=== PATIENT | female | born 1995 | race Caucasian/White ===

== ENCOUNTER 2017-02-05 14:01 | Emergency (ER) | payer OTHER ==
[~2017-02-05] VITALS: Ht 167.6 cm; Wt 63.5 kg
[2017-02-05] MEDS ORDERED: NS 1,000 ML IV ONE (15:00)
--- NOTE | 2017-02-05 15:27 | REP ---
Clinical: Altered mental status . Comparison: None. Findings: The ventricles, sulci, and cisterns are normal in position and appearance. Rae-white differentiation is maintained. No acute intracranial hemorrhage, mass/mass effect, pathology or trauma/injury. No evidence for acute infarction. No extra-axial fluid collection. Calvarium is intact. Paranasal sinuses and mastoid air cells are clear. Impression: Normal noncontrast head CT. No evidence for acute intracranial pathology or trauma/injury. Signed by Valentin Mott MD 02/05/2017 03:17 P
--- NOTE | 2017-02-05 15:28 | REP ---
CHEST: Single view. No comparison. There is no evidence of acute infiltrate. No pleural effusion is seen. The heart is normal in size. The mediastinal silhouette is unremarkable. The visualized osseous structures are intact. IMPRESSION: No acute pulmonary disease. Signed by Hussein Rae MD 02/05/2017 03:33 P
[2017-02-05] MEDS ORDERED: ACETAMINOPHEN TAB 650MG DOSE (2X325MG) PO ONE (15:30)
[2017-02-05 15:44] LABS: BASO % 0.3 % (0.0-1.0); EOS # 0.1 K/mm3 (0.0-0.50); EOS % 0.7 % (0.0-3.0); LARGE UNSTAINED CELL # 0.1 K/mm3 (0.0-0.4); LARGE UNSTAINED CELL % 1.2 % (0.0-4.0); LYMPH # 1.8 K/mm3 (1.5-6.5); LYMPH % 20.7 % (24.0-44.0); MEAN CORPUSCULAR HEMOGLOBIN 27.1 pg (27.0-33.0); MEAN CORPUSCULAR HGB CONC 33.6 g/dl (32.0-36.5); MEAN CORPUSCULAR VOLUME 80.7 fl (80.0-96.0); MONO # 0.5 K/mm3 (0.0-0.8); MONO % 5.5 % (0.0-5.0); NEUTROPHILS % 71.7 % (36.0-66.0); PLATELET COUNT, AUTOMATED 250 k/mm3 (150-450); RED CELL DISTRIBUTION WIDTH 12.8 % (11.5-14.5); WHITE BLOOD COUNT 8.3 K/mm3 (4.0-10.0)
[2017-02-05 15:58] LABS: CONTROL LINE HCG INT CTR LINE PRESENT
[2017-02-05 16:10] LABS: ALBUMIN/GLOBULIN RATIO 1.54 (1.00-1.93); ALKALINE PHOSPHATASE 65 U/L (45-117); ALT/SGPT 13 U/L (12-78); ANION GAP 9 MEQ/L (8-16); AST/SGOT 8 U/L (15-37); BILIRUBIN,DIRECT 0.2 MG/DL (0.0-0.2); BILIRUBIN,TOTAL 0.5 MG/DL (0.2-1.0); BLOOD UREA NITROGEN 10 MG/DL (7-18); CALCIUM LEVEL 8.5 MG/DL (8.5-10.1); CARBON DIOXIDE LEVEL 23 MEQ/L (21-32); CHLORIDE LEVEL 110 MEQ/L (98-107); CREATININE FOR GFR 0.61 MG/DL (0.55-1.02); GLOMERULAR FILTRATION RATE > 60.0 (>60); GLUCOSE, FASTING 98 MG/DL (70-105); POTASSIUM SERUM 3.3 MEQ/L (3.5-5.1); SODIUM LEVEL 142 MEQ/L (136-145); TOTAL PROTEIN 6.6 GM/DL (6.4-8.2)
[2017-02-05] MEDS ORDERED: ONDANSETRON 4MG/2ML VIAL (J2405) As Ordered ONE (16:14)
[2017-02-05] MEDS ORDERED: ONDANSETRON 4MG/2ML VIAL (J2405) IV ONE (16:15)
[2017-02-05 16:35] LABS: METHADONE URINE NEGATIVE (NEGATIVE)
[2017-02-05] MEDS ORDERED: diphenhydrAMINE INJ 50MG/ML VIAL (J1200) IV STA (17:52)
[2017-02-05] MEDS ORDERED: METOCLOPRAMIDE INJ 10MG/2ML VIAL (J2765) IV ONE (18:00)
[2017-02-05] MEDS ORDERED: KETOROLAC 30 MG/ML VIAL (J1885) IV ONE (18:00)
[2017-02-05] MEDS ORDERED: REGL10TA6 PO (19:41)
[2017-02-05] MEDS ORDERED: MOTR200T44 PO (19:43)
[2017-02-05 20:03] VITALS: BP 107/64
--- NOTE | 2017-02-06 07:20 | ECGEPIP ---
Stationary ECG Study [facility] - ED Test Date: 2017-02-05 Pat Name: ILIA LAGUNAS Department: Room: - Gender: F Wholesale Buyer: JMi : 1995 Requested By: Mata Bill Order Number: [id number] Reading MD: Adina Subramanian Measurements Intervals [place] Rate: 72 P: -3 NM: 114 QRS: 78 QRSD: 94 T: 25 QT: 370 QTc: 406 Interpretive Statements SINUS RHYTHM WITH SHORT NM INTERVAL NO PRIOR FOR COMPARISON Electronically Signed On 02-06-2017 7:19:35 EDT by Adina Subramanian
== END 2017-02-05 20:04 | disposition home or self-care (01) ==
LOC: M ED 16:04
DX: G43.909 Migraine, unspecified, not intractable, without status migrainosus (principal)
CPT/HCPCS: 70450; 71010; 80048; 80076; 80306; 81001; 82140; 82550; 82553; 83605; 84443; 84703; 85025; 87040; 87086; 93005; 93041; 94760; 96361; 96374; 96375; 99285; G0480; J1200; J1885; J2405; J2765

== ENCOUNTER 2017-02-10 11:30 | Emergency (ER) | payer OTHER ==
[~2017-02-10] VITALS: Ht 167.6 cm; Wt 63.5 kg
[~2017-02-10 11:30] MED LIST: MOTR200T44 PO; REGL10TA6 PO
[2017-02-10] MEDS ORDERED: CETI10TA PO (11:48)
[2017-02-10] MEDS ORDERED: MONT10TA2 PO (11:48)
[2017-02-10] MEDS ORDERED: FIORCAP3 PO (11:48)
[2017-02-10] MEDS ORDERED: METOCLOPRAMIDE INJ 10MG/2ML VIAL (J2765) IV ONE (12:30)
[2017-02-10] MEDS ORDERED: KETOROLAC 30 MG/ML VIAL (J1885) IV ONE (12:30)
[2017-02-10] MEDS ORDERED: NS 1,000 ML IV ONE ×2 (12:30→14:15)
[2017-02-10] MEDS ORDERED: diphenhydrAMINE INJ 50MG/ML VIAL (J1200) IV ONE (12:30)
[2017-02-10 12:51] LABS: BASO % 0.2 % (0.0-1.0); EOS % 0.5 % (0.0-3.0); LARGE UNSTAINED CELL # 0.1 K/mm3 (0.0-0.4); LARGE UNSTAINED CELL % 1.3 % (0.0-4.0); LYMPH # 1.5 K/mm3 (1.5-6.5); LYMPH % 28.3 % (24.0-44.0); MEAN CORPUSCULAR HEMOGLOBIN 26.8 pg (27.0-33.0); MEAN CORPUSCULAR HGB CONC 33.5 g/dl (32.0-36.5); MONO # 0.2 K/mm3 (0.0-0.8); NEUTROPHILS # 3.4 K/mm3 (1.8-7.7); NEUTROPHILS % 65.6 % (36.0-66.0); PLATELET COUNT, AUTOMATED 234 k/mm3 (150-450); RED CELL DISTRIBUTION WIDTH 12.6 % (11.5-14.5); WHITE BLOOD COUNT 5.2 K/mm3 (4.0-10.0)
[2017-02-10 12:55] LABS: INR 1.01
[2017-02-10 13:07] LABS: CONTROL LINE HCG INT CTR LINE PRESENT
[2017-02-10 13:14] LABS: ANION GAP 7 MEQ/L (8-16); BLOOD UREA NITROGEN 13 MG/DL (7-18); CALCIUM LEVEL 9.2 MG/DL (8.5-10.1); CARBON DIOXIDE LEVEL 28 MEQ/L (21-32); CHLORIDE LEVEL 107 MEQ/L (98-107); CREATININE FOR GFR 0.69 MG/DL (0.55-1.02); GLOMERULAR FILTRATION RATE > 60.0 (>60); GLUCOSE, FASTING 91 MG/DL (70-105); MAGNESIUM LEVEL 2.3 MG/DL (1.8-2.4); SODIUM LEVEL 142 MEQ/L (136-145)
[2017-02-10 15:56] VITALS: BP 110/66
--- NOTE | 2017-02-11 09:27 | ECGEPIP ---
Stationary ECG Study [facility] - ED Test Date: 2017-02-10 Pat Name: ILIA LAGUNAS Department: Room: - Gender: F [employer]: jose : 1995 Requested By: GENA MITCHELL Order Number: [id number] Reading MD: Adina Subramanian Measurements Intervals [place] Rate: 74 P: -3 [place]: 122 QRS: 77 QRSD: 92 T: 24 QT: 369 QTc: 411 Interpretive Statements SINUS RHYTH SIMILAR 02/05/17 Electronically Signed On 02-11-2017 9:26:36 EDT by Adina Subramanian
== END 2017-02-10 15:59 | disposition home or self-care (01) ==
LOC: M ED 14:25
DX: R55 Syncope and collapse (principal); G43.909 Migraine, unspecified, not intractable, without status migrainosus; F17.210 Nicotine dependence, cigarettes, uncomplicated; Z79.899 Other long term (current) drug therapy
CPT/HCPCS: 80048; 82550; 82553; 83735; 84443; 84703; 85025; 85610; 93005; 93041; 96361; 96374; 96375; 99284; G0480; J1200; J1885; J2765

== ENCOUNTER 2017-02-15 09:18 | Inpatient (IN) | payer OTHER ==
[~2017-02-15] VITALS: Ht 167.6 cm; Wt 59.1 kg
[~2017-02-15 09:18] MED LIST changes: +CETI10TA PO; +CETIRIZINE (ZyrTEC) 10 MG TAB PO PRN; +CETIRIZINE (ZyrTEC) 10 MG TAB PO SCH; +FIORCAP3 PO; +MONT10TA2 PO; +MONTELUKAST 10 MG TAB PO PRN; +MONTELUKAST 10 MG TAB PO SCH
[2017-02-15 09:55] LABS: BASO % 0.2 % (0.0-1.0); EOS % 0.7 % (0.0-3.0); LARGE UNSTAINED CELL # 0.1 K/mm3 (0.0-0.4); LARGE UNSTAINED CELL % 2.1 % (0.0-4.0); LYMPH # 1.9 K/mm3 (1.5-6.5); LYMPH % 34.9 % (24.0-44.0); MEAN CORPUSCULAR HEMOGLOBIN 26.6 pg (27.0-33.0); MEAN CORPUSCULAR HGB CONC 33.1 g/dl (32.0-36.5); MEAN CORPUSCULAR VOLUME 80.5 fl (80.0-96.0); MONO # 0.3 K/mm3 (0.0-0.8); MONO % 5.8 % (0.0-5.0); NEUTROPHILS # 2.9 K/mm3 (1.8-7.7); NEUTROPHILS % 56.3 % (36.0-66.0); PLATELET COUNT, AUTOMATED 241 k/mm3 (150-450); RED CELL DISTRIBUTION WIDTH 12.7 % (11.5-14.5); WHITE BLOOD COUNT 5.1 K/mm3 (4.0-10.0)
[2017-02-15 10:11] LABS: CONTROL LINE HCG INT CTR LINE PRESENT
--- NOTE | 2017-02-15 10:16 | REP ---
AP PORTABLE CHEST: 02/15/2017. Comparison: 02/05/2017. Clinical history: Syncope/Near-syncope. Findings: The lung johnson are well inflated. There is no pleural effusion, lateral pleural thickening, apical scarring or pneumothorax. The heart, mediastinal and hilar contours are normal. There is no definite infiltrate or mass. The aorta is intact. Airway unremarkable. Bony thorax shows no focal lesion. No free air under the diaphragm. Impression: 1. Negative portable chest. Stable examination from 02/05/2017. Signed by Martín Rick MD 02/15/2017 08:06 P
[2017-02-15 10:21] LABS: ANION GAP 10 MEQ/L (8-16); BLOOD UREA NITROGEN 16 MG/DL (7-18); CALCIUM LEVEL 8.9 MG/DL (8.5-10.1); CARBON DIOXIDE LEVEL 26 MEQ/L (21-32); CHLORIDE LEVEL 105 MEQ/L (98-107); CREATININE FOR GFR 0.76 MG/DL (0.55-1.02); GLOMERULAR FILTRATION RATE > 60.0 (>60); GLUCOSE, FASTING 92 MG/DL (70-105); POTASSIUM SERUM 3.6 MEQ/L (3.5-5.1); SODIUM LEVEL 141 MEQ/L (136-145)
[2017-02-15 10:23] LABS: METHADONE URINE NEGATIVE (NEGATIVE)
--- NOTE | 2017-02-15 10:32 | REP ---
CT Head without contrast HISTORY: Syncope COMPARISON: 02/05/2017 There is no intraparenchymal hemorrhage, acute infarct, mass or midline shift. The ventricular system is normal in appearance. There is no extra cerebral collection. There is no fracture. The visualized sinuses are clear. IMPRESSION: There is no intracranial lesion. Signed by Scott Oliva MD 02/15/2017 10:23 A
[2017-02-15] MEDS ORDERED: BUTA-198 PO (11:25)
[2017-02-15] MEDS ORDERED: ONDANSETRON 4MG/2ML VIAL (J2405) IV PRN (13:15)
[2017-02-15] MEDS ORDERED: ACETAMINOPHEN TAB 650MG DOSE (2X325MG) PO PRN (13:15)
[2017-02-15] MEDS ORDERED: LORazepam 2 MG/ML VIAL (J2060) IV STA (14:13)
[2017-02-15 14:32] LABS: ALBUMIN 4.1 GM/DL (3.2-5.2); ALBUMIN/GLOBULIN RATIO 1.32 (1.00-1.93); ALKALINE PHOSPHATASE 67 U/L (45-117); ALT/SGPT 19 U/L (12-78); AMYLASE 29 U/L (25-115); AST/SGOT 9 U/L (15-37); BILIRUBIN,DIRECT < 0.1 MG/DL (0.0-0.2); BILIRUBIN,TOTAL 0.4 MG/DL (0.2-1.0); TOTAL PROTEIN 7.2 GM/DL (6.4-8.2)
[2017-02-15 15:30] VITALS: BP 134/80
[2017-02-15 16:22] VITALS: BP 134/80
--- NOTE | 2017-02-15 16:24 | REP ---
MR BRAIN WITHOUT AND WITH CONTRAST: HISTORY: Seizure. COMPARISON: CT 02/15/2017. The sinuses are obscured and the orbits and inferior frontal lobes are partially obscured secondary to metal artifact from braces. There are no areas of abnormal signal intensity in the visualized brain. There is no intraparenchymal hemorrhage, infarct, mass or midline shift. There is no abnormal enhancement. There is asymmetry in the temporal horns of the lateral ventricles with the right being larger than the left. This represents a normal variant. There is no hydrocephalus or extracerebral collection. Minimal mucosal thickening is present in the right mastoid air cells. IMPRESSION:Limited examination demonstrating no intracranial lesion. Signed by Scott Oliva MD 02/15/2017 04:36 P
--- NOTE | 2017-02-15 16:40 | ECGEPIP ---
Stationary ECG Study [facility] - ED Test Date: 2017-02-15 Pat Name: ILIA LAGUNAS Department: Room: - Gender: F Compliance Investigator: rn : 1995 Requested By: Álvaro Phillips Order Number: [id number] Reading MD: Adina Subramanian Measurements Intervals [place] Rate: 79 P: 40 IN: 131 QRS: 75 QRSD: 96 T: 20 QT: 356 QTc: 409 Interpretive Statements SINUS RHYTHM WITH SINUS ARRHYTHMIA SIMILAR 02/10/17 Electronically Signed On 02-15-2017 16:40:06 EDT by Adina Subramanian
--- NOTE | 2017-02-15 19:17 | HPEPDOC ---
General Date of Admission Feb 15, 2017 at 13:02 Attending Physician: EMBER LOUIE MD Chief Complaint The patient is a 22-year-old female admitted with a reason for visit of Syncope. Source: Patient, Other (sister in law and friend) Timing/Duration: Week(s) (2) Associated Symptoms: Headaches, Nausea, Syncope, Dizziness History of Present Illness PRIMARY CARE PROVIDER: Dr. Suzie Gilliam [facility] CHIEF COMPLAINT: Loss of consciousness episodes Sent to the ED after fainting in the sleep lab hallway at [facility] HISTORY OF PRESENT ILLNESS: This is a 22-year-old female with past medical history of migraines that began 3-4 years ago, cleft palate at , seasonal allergies, who presented to [facility] ED after fainting and losing consciousness in the hallway of the [facility] sleep lab when a rapid assessment team was called. States, today that she had gotten up, didn't feel well, felt worse than yesterday, and that the staff of the EEG lab/sleep study area had irritated her. They had told her to write down things that she remembered since she started having passing out spells, which had started on February 05. States that she was told to write out details of her passing out and what happens, which she states she does not remember, and made her feel stressed out/upset/irritated. States that on February 05, she was driving [address] and heading towards [place], she began to not feel well as if she was going to pass out, and she put her hazard lights on , pulled over to the side, and called her wvilfh-at-xha. Her iodlos-er-npc who is at bedside now, states that the patient said that she did not feel good, her words were slurred, and the patient was stating to her that she didn't know where she was and was crying, the aoctsh-gx-nmp had tracked her phone information, found out where she was, called 911, and gave her location to 91. Paramedics were sent over for brought her to [facility] ED. Rynelh-hq-eai also states that she was having an anxiety attack. Patient kept asking where her was and thought he was here and he is actually training as a soldier in [place]. In addition, patient states that she is from [place], and when she was driving to [place], had an episode of passing out, she thought that she was actually in her parents home in [place] and that she was taking her dogs out of the house, and feeling as if she was physically there. In actuality, the patient states that her parents do not live in that house anymore and that she does not have any dogs. Prior to February 05, patient states she has never had any loss of consciousness episodes and denies a history of seizures. Her sister- in-law states that when the patient passes out, it isn't very long and usually lasts less than 1 minute, maybe a few seconds, before the patient wakes back up. All in all, ebbjcu-gq-sbm and friend at bedside state that the patient has had at least 6-7 episodes of losing consciousness and fainting which she recovers from after a few seconds. The first episode occurred on February 05. The second episode occurred last . The third episode occurred last Saturday and the patient was not feeling good, falling in and out of sleep, and couldn't keep her eyes open at all. The fourth episode occurred last Saturday. Patient admits that she also fainted in a rocking chair on Saturday this week for a 5th episode. She also admits that she passed out in the tub yesterday while filling water for a 6th episode. Today, the patient passed out seventh time at least while in the sleep lab hallway at [facility]. Her tbgorz-pe-rjz also states that the patient falls when she passes out if she is standing and that there is no consistency with the way that she falls. Sometimes she falls on her side and sometimes she falls forward. Her legs seem to give out. At the sleep lab hallway today, she had fallen on her belly as they were trying to sit her up according to ersxfj-in-gkn. No reported witnesses of the event. It is not known if the patient had hit her head both times that she has fallen. However, patient states that there has been a sore spot on her head that she has noticed. Csvajz-dx-odf mentions that a majority of the time, the patient does not remember where she is at or what is going on. The episodes usually occur after stressful situations, anxiety, or arguing, and then the patient faints. The patient will be standing, sitting, or relaxing taking a bath for instance. Patient also states that she becomes lightheaded and faint, starts having room spinning dizziness. Her head feels very heavy prior to passing out. States she has been drinking 1 L of water per day for last couple of days. Her sister-in- law is also making sure that she eats more and in fact the patient admits that she does eat more. The patient was seen in [facility] ED the first time on Saturday and diagnosed with atypical migraine. The second time the patient was seen on February 10 and diagnosed with orthostatic syncope. During both [facility] ED visits, the patient had negative blood work, seems to have negative orthostatics upon my review, a negative CT scan of the head, and a negative chest x-ray. In addition, patient was treated with Toradol at each visit. She was also treated with Benadryl and Reglan during the ED visit. Also discharged with Reglan and ibuprofen during an [facility] ED visit. Patient states that she did take Reglan for nausea PRN, but this made her dizzy. Patient has also been seen in [place] last in which they only did blood work. Review of systems is positive for cough and chronic sinus problems due to history of cleft palate. Positive for nausea which she states is constant. She was given Reglan the first time that she was in the emergency department. Admits to a bandlike [employer] distribution headache that is mostly throbbing and sometimes pressure-like that began on February 05 as well. States that the headache has been constant and has not gone away at all and is awful. States that the headache is now a 5/10 in intensity. She does admit to an aura with knowing when the headache will come on. States that she begins to have pain in her neck starting at the base of her skull which goes all the way down to her spine up to her low back spine area. States that it hurts to move and stand, and she has to sit down. In addition, the her right eye also hurts at times with no tearing. But it feels good when she closes her right eye. She does admit to sensitivity to bright lights, headlights, and sensitivity to noise only if it is a very bad headache. States Dr. Burdick and Farzaneh Irwin make her headache worse. However, she says that she does not have exacerbation of her headache when she drinks Pepsi. She has no triggers to cheese or chocolate. Admits that sleeping does help her headaches sometimes, as well as a hot bath. But if she is just laying there, she is nauseous. Patient denies fevers, chills , chest pain, shortness of breath, vomiting, diarrhea, constipation. Admits to abdominal pain that began on February 03 on the right side of her abdomen which is not constant. States that she'll go a couple of days without abdominal pain which is intermittent, on and off. The first time that she had the abdominal pain states that it was on the right side of her back too, but now, she states it is just in the right side of her abdomen anteriorly. States that it feels like a muscle spasm. It is a 5/10 out of intensity and gets up to an 8/10 in intensity. It sometimes turns into a dull ache and is a dull ache at this point in time right now. When she moves around, it starts to hurt like a stabbing. ALLERGIES: Seasonal No known drug allergies PAST MEDICAL HISTORY: Born with cleft palate Migraines beginning 3-4 years ago Seasonal allergies No previous history of seizure disorders. PAST SURGICAL HISTORY: Cleft palate repair: Around 20-25 different surgeries starting at 9 months old. 2 recurrent instructions of the nose: 11 years old, 18-year-old Speech surgery 2) grafts: First was at 8 years old, second was at 11 years old, Bone marrow protein biopsy: Round 13 years old Tonsil and adenoidectomy Tubes in ears Right atrium repair 2 Left knee ACL repair 18 years old Right knee MCL repair in 19 years old Pharyngeal flap 18 years old SOCIAL HISTORY: Is an occasional and social smoker: Used to smoke mainly in high school but not as much now. EtOH use: Drinks wine mainly one week and a month, but not a lot. Does not drink beer because she does not like it. No illicit drug use. Lives at home with who is training and in [place] at the moment. No children. 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 No exposure to asbestos/tuberculosis. FAMILY HISTORY: Father: Type 2 diabetes mellitus who is also on insulin, history of massive UT status post stents, may also have high cholesterol Paternal grandparents: from heart attacks in their 50s Maternal grandfather: Pacemaker Mother: Hypertension, anxiety 3 brothers: Healthy and alive No family history of seizure disorders. CODE STATUS: Full code. REVIEW OF SYSTEMS: All review of systems are negative except for those stated in HPI above. PHYSICAL EXAMINATION: Initial ED Vitals: T: 97.7, BP: 120/78, RR: 18, P: 89, O2 Saturation: 97% room air General: Pleasant and cooperative young adult female lying in bed comfortably in no acute distress. Nontoxic and qge-kml-ipeyzdasb. Calm. HEENT: Head: normocephalic, atraumatic. Eyes: PERRL, sclera are nonicteric. Nose: Noticeable asymmetry and deformity of and nose. Throat: no pharyngeal erythema or exudates, moist buccal mucosa, no uvula and no tonsils. Neck: Supple. No cervical lymphadenopathy bilaterally. No thyromegaly. Respiratory: clear to auscultation bilaterally with no wheezes, rales, or rhonchi. Cardiovascular: regular rate and rhythm, with no murmurs, rubs or gallops. Abdomen: soft, nondistended, no hepatosplenomegaly appreciated. Bowel sounds present. Positive generalized tenderness to palpation of abdomen in left upper quadrant, left lower quadrant, right lower quadrant,. Negative Silva's sign. Extremities: 5/5 muscle strength in upper and lower extremities bilaterally, no swelling in either lower extremity bilaterally Neurological: Cranial nerves II through XII intact bilaterally. No focal neurologic deficits appreciated bilaterally. Integumentary: skin free from rashes, lesions, abrasions Vascular: +2 radial pulses bilaterally. LABORATORY DATA: All unremarkable. Please see below. ELECTROCARDIOGRAM: Normal Sinus rhythm Rate: 79 bpm AR interval: 131 ms Cure latter-day: 96 ms QTC interval: [address] segment elevations or depressions appreciated. Normal R-wave progression. RADIOLOGY: Chest x-ray: Negative CT scan of the head without contrast: Negative and showed no acute intracranial pathology. ASSESSMENT: This is a 22-year-old female with past medical history of cleft palate at , 4-5 year history of migraines, and seasonal allergies, presenting to [facility] for a 2 week history of multiple episodes of syncope/presyncope associated with migraine headache that began the same time, and associated with nausea. So far, labs and imaging have been nonrevealing. Differential includes atypical migraine , complex migraine, pseudoseizure, seizure, anxiety, neurological: Craniopharyngioma, cardiac: Congenital heart abnormality, arrhythmia. vs. other etiology. PLAN: Presyncope/syncope/loss of consciousness: We will admit to PCU telemetry unit and place on returned item clerk. We'll obtain MRI of the brain. Have consulted Neurology Dr. Llamas--will be in to see the patient tonight. We'll place on seizure precautions. We'll schedule EEG for Saturday. We'll give Toradol for migraine/pain. We'll do neuro checks every 4 hours. Possible cardiac etiology: as well as patient has a history of cleft palate, she may also have some other congenital malformations or abnormality such as in the heart. May consider doing an echocardiogram as well. Migraine Headache: Can give toradol, reglan, benadryl, zofran, etc. for control of symptoms if needed. Seasonal allergies: Continue Zyrtec and Singulair when necessary. DVT prophylaxis: Nonpharmacologic DVT prophylaxis at this time. TEDS and SCDs if patient unable to ambulate. Will encourage OOB and ambulation first. Immunizations as per protocol. FULL CODE STATUS. I have both independently examined this patient as well as reviewed documentation. I have discussed case in general with covering neurologist. I have discussed the findings in detail with Dr. Valle the findings and plan of treatment as documented in the note. I will continue to follow the patient and offer further guidance to the patients care as necessary. Home Medications Scheduled Cetirizine HCl (Cetirizine HCl) 10 Mg Tab 1 TAB PO DAILY (Reported) Montelukast Sodium (Montelukast Sodium) 10 Mg Tab 1 TAB PO DAILY (Reported) Scheduled PRN (Butalbital/Acetaminophen/ 50-325-40 mg) 1 Tab Tab 1 TAB PO PRN PRN PRN MIGRAINE (Reported) Rizatriptan Benzoate (Maxalt-Propulsion Engineer) 10 Mg Tab 10 MG PO BIDP PRN PRN MIGRAINE Allergies Coded Allergies: No Known Drug Allergy (Verified Allergy, Unknown, 02/05/17) Vital Signs As above. Laboratory Data Labs 24H Laboratory Tests 2 02/15/17 09:36: Aspartate Amino Transf (AST/SGOT) 9L, Alanine Aminotransferase (ALT/SGPT) 19, Alkaline Phosphatase 67, Total Bilirubin 0.4, Direct Bilirubin < 0.1, Albumin 4.1, Albumin/Globulin Ratio 1.32, Amylase Level 29, Anion Gap 10, White Blood Count 5.1, Red Blood Count 4.85, Hemoglobin 12.9, Hematocrit 39.1, Mean Corpuscular Volume 80.5, Mean Corpuscular Hemoglobin 26.6L, Mean Corpuscular Hemoglobin Concent 33.1, Red Cell Distribution Width 12.7, Platelet Count 241, Neutrophils (%) (Auto) 56.3, Lymphocytes (%) (Auto) 34.9, Monocytes (%) (Auto) 5.8H, Eosinophils (%) (Auto) 0.7, Basophils (%) (Auto) 0.2, Neutrophils # (Auto ) 2.9, Lymphocytes # (Auto) 1.9, Monocytes # (Auto) 0.3, Eosinophils # (Auto) 0.0, Basophils # (Auto) 0.0, Calcium Level 8.9, Creatine Kinase MB 1.0, Creatine Kinase MB Relative Index 1.49, Glomerular Filtration Rate > 60.0, Human Chorionic Gonadotropin, Qual NEGATIVE, Large Unclassified Cells # 0.1, Large Unclassified Cells % 2.1, Lipase 77, Thyroid Stimulating Hormone (TSH) 0.924, Total Creatine Kinase 67, Total Protein 7.2, Troponin I < 0.02, Urine Amphetamines Screen NEGATIVE, Urine Benzodiazepines Screen NEGATIVE, Urine Opiates Screen NEGATIVE, Urine Barbiturates Screen POSITIVEH, Urine Cannabinoids Screen NEGATIVE, Urine Cocaine Metabolite Screen NEGATIVE, Urine Methadone Screen NEGATIVE, Urine Phencyclidine Screen NEGATIVE 02/15/17 10:09: Bedside Glucose (Misc Panel) 90 CBC/BMP Laboratory Tests 02/15/17 09:36 Red Blood Count 4.85, Mean Corpuscular Volume 80.5, Mean Corpuscular Hemoglobin 26.6 L, Mean Corpuscular Hemoglobin Concent 33.1, Red Cell Distribution Width 12.7, Neutrophils (%) (Auto) 56.3, Lymphocytes (%) (Auto) 34.9, Monocytes (%) ( Auto) 5.8 H, Eosinophils (%) (Auto) 0.7, Basophils (%) (Auto) 0.2, Neutrophils # (Auto) 2.9, Lymphocytes # (Auto) 1.9, Monocytes # (Auto) 0.3, Eosinophils # ( Auto) 0.0, Basophils # (Auto) 0.0 Plan / VTE VTE Prophylaxis Ordered?: No VTE Exclusion Mechanical Proph: Other (Patient may be able to ambulate on her own and is not mobility impaired. ) VTE Exclusion Pharmacological: Other (Able to ambulate and is not mobility impaired. ) JOVANNY VALLE OGME-1 Feb 15, 2017 14:52 EMBER LOUIE MD Feb 18, 2017 14:42
[2017-02-15] MEDS ORDERED: SLF 3 ML SYR IV PRN (19:30)
[2017-02-15 19:44] VITALS: BP 108/71
[2017-02-15] MEDS: SLF 3 ML SYR IV SCH (20:13)
[2017-02-15] MEDS: KETOROLAC 30 MG/ML VIAL (J1885) IV PRN (21:32)
[2017-02-15 23:24] VITALS: BP 113/67
[2017-02-16 04:14] VITALS: BP 117/68
[2017-02-16] MEDS: SLF 3 ML SYR IV SCH ×3 (04:41→20:50)
[2017-02-16 05:21] LABS: MEAN CORPUSCULAR HEMOGLOBIN 27.1 pg (27.0-33.0); MEAN CORPUSCULAR HGB CONC 33.9 g/dl (32.0-36.5); MEAN CORPUSCULAR VOLUME 79.9 fl (80.0-96.0); RED CELL DISTRIBUTION WIDTH 12.5 % (11.5-14.5); WHITE BLOOD COUNT 6.1 K/mm3 (4.0-10.0)
[2017-02-16 05:47] LABS: ANION GAP 8 MEQ/L (8-16); BLOOD UREA NITROGEN 18 MG/DL (7-18); CALCIUM LEVEL 8.7 MG/DL (8.5-10.1); CARBON DIOXIDE LEVEL 26 MEQ/L (21-32); CHLORIDE LEVEL 105 MEQ/L (98-107); CREATININE FOR GFR 0.71 MG/DL (0.55-1.02); GLOMERULAR FILTRATION RATE > 60.0 (>60); GLUCOSE, FASTING 89 MG/DL (70-105); MAGNESIUM LEVEL 2.3 MG/DL (1.8-2.4); POTASSIUM SERUM 3.8 MEQ/L (3.5-5.1); SODIUM LEVEL 139 MEQ/L (136-145)
[2017-02-16] MEDS ORDERED: METOCLOPRAMIDE INJ 10MG/2ML VIAL (J2765) IV PRN (07:45)
[2017-02-16 08:00] VITALS: BP 115/69
[2017-02-16] MEDS: KETOROLAC 30 MG/ML VIAL (J1885) IV PRN (08:45)
[2017-02-16] MEDS ORDERED: VALPROATE SOD INJ 500 MG in D5W 50 ML IV ONE (09:00)
[2017-02-16 12:00] VITALS: BP 129/72
[2017-02-16] MEDS ORDERED: RIZATRIPTAN MLT 10 MG TAB PO PRN (12:00)
--- NOTE | 2017-02-16 12:36 | IPNPDOC ---
Text Note Date of Service The patient was seen on 02/16/17. NOTE SUBJECTIVE: 22 yo F was seen and examined at bedside. Denies fevers, chills, chest pain, vomiting, abdominal pain, diarrhea, swelling, weakness. Admitted to migraine in occitan/tension headache frontal to back of skull distribution 01/25 in intensity status-post toradol this AM. Admits to nausea and dizziness. States she gets dizzy when sitting up. Admits to constipation but abdominal pain has gone away. OBJECTIVE: PHYSICAL EXAMINATION: Initial ED Vitals: T:98.2, BP:117/68, RR:18, P:80, O2 Saturation: 98% room air, Wt yesterday: 60 kg, Weight today: 59.3 kg I/O: 300/278 mLs, +25 mL balance 24 hr. UO: 0.20 mL/kg/hr. General: Pleasant and cooperative young adult female resting comfortably in bed in no acute distress in dark room without lights. Nontoxic and non-ill- appearing. Calm. HEENT: Head: normocephalic, atraumatic. Eyes: closed as she is trying to rest. Nose: Noticeable asymmetry and deformity of and nose. Lips intact but asymmetric upper lip at corner of mouth on R. Neck: Supple. Respiratory: clear to auscultation bilaterally with no wheezes, rales, or rhonchi. Cardiovascular: regular rate and rhythm, with no murmurs, rubs or gallops. Abdomen: soft, nondistended, no hepatosplenomegaly appreciated. Bowel sounds present but hypoactive. No tenderness to light/deep palpation x 4 quadrants. Extremities: No swelling in either lower extremity bilaterally. Neurological: No focal neurologic deficits appreciated bilaterally. Integumentary: skin free from rashes, lesions, abrasions Vascular: +2 radial pulses bilaterally. +2 dorsalis pedis pulses bilaterally. LABORATORY DATA: Please see below. Unremarkable and WNL. RADIOLOGY: MRI of the brain with and without contrast done yesterday showed no intracranial lesion. ASSESSMENT: This is a 22-year-old female with past medical history of cleft palate at , 4-5 year history of migraines, and seasonal allergies, presenting to [facility] for a 2 week history of multiple episodes of syncope/presyncope associated with migraine headache that began the same time, and associated with nausea. So far, labs and imaging have been nonrevealing. Differential includes atypical migraine , complex migraine, pseudoseizure, seizure, anxiety, neurological: craniopharyngioma, cardiac: congenital heart abnormality, arrhythmia. vs. other etiology. PLAN: Presyncope/syncope/loss of consciousness: On PCU/telemetry unit and on groundwater monitoring technician. Telemetry shows sinus rhythm with HR ranging from 70s - low 100s indicating a sinus arrhythmia. MRI of the brain was negative and did not show any intracranial lesion. Have consulted Neurology who will see the patient today. Did not see patient yesterday. Patient on seizure precautions. EEG on Saturday. Toradol given this AM for migraine/pain, which patient reports improvement with to 01/25. We'll do neuro checks every 4 hours. MRI negative so have ruled out craniopharyngioma. Will rule out other neurological etiologies such as pseudoseizure vs. seizure vs. complex migraine, etc. Possible cardiac etiology: as well as patient has a history of cleft palate, she may also have some other congenital malformations or abnormality such as in the heart. May consider doing an echocardiogram as well at some point. Migraine Headache: Can give toradol, reglan, benadryl, compazine, zofran, depakote etc. for control of symptoms if needed. Nursing reports that they had tried to give depakote but patient refused due to neurologist recommendation to avoid for risk of infertility, though patient's qualitative hCG was negative yesterday. Seasonal allergies: Continue Zyrtec and Singulair PRN. DVT prophylaxis: Nonpharmacologic DVT prophylaxis at this time. TEDS and SCDs added. Will encourage OOB and Ambulation. Immunizations as per protocol. FULL CODE STATUS. VS,Fishbone, I+O VS, Fishbone, I+O Laboratory Tests 02/16/17 04:14 Calcium Level 8.7, Red Blood Count 5.05, Mean Corpuscular Volume 79.9 L, Mean Corpuscular Hemoglobin 27.1, Mean Corpuscular Hemoglobin Concent 33.9, Red Cell Distribution Width 12.5 Vital Signs Date Time Temp Pulse Resp B/P Pulse Ox O2 Delivery O2 Flow Rate FiO2 02/16/17 12:00 97.5 92 18 129/72 100 Room Air I&O- Last 24 Hours up to 6 AM 02/16/17 06:00 Intake Total 500 ml Output Total 275 ml Balance 225 ml GME ATTESTATION GME ATTESTATION I have both independently examined this patient as well as reviewed documentation. I have discussed the findings in detail with Dr. Araiza the findings and plan of treatment as documented in the note. I will continue to follow the patient and offer further guidance to the patients care as necessary. JOVANNY ARAIZA OGME-1 Feb 16, 2017 12:36 EMBER LOUIE MD Feb 18, 2017 14:42
[2017-02-16 16:00] VITALS: BP 120/64
[2017-02-16 20:17] VITALS: BP 109/65
[2017-02-16 23:35] VITALS: BP 105/64
[2017-02-17 05:02] LABS: MEAN CORPUSCULAR HEMOGLOBIN 27.1 pg (27.0-33.0); MEAN CORPUSCULAR HGB CONC 33.5 g/dl (32.0-36.5); MEAN CORPUSCULAR VOLUME 80.8 fl (80.0-96.0); RED CELL DISTRIBUTION WIDTH 12.6 % (11.5-14.5); WHITE BLOOD COUNT 6.4 K/mm3 (4.0-10.0)
[2017-02-17] MEDS: SLF 3 ML SYR IV SCH (05:05)
[2017-02-17 05:10] VITALS: BP 113/70
[2017-02-17 05:11] LABS: ANION GAP 9 MEQ/L (8-16); BLOOD UREA NITROGEN 18 MG/DL (7-18); CALCIUM LEVEL 8.1 MG/DL (8.5-10.1); CARBON DIOXIDE LEVEL 26 MEQ/L (21-32); CHLORIDE LEVEL 106 MEQ/L (98-107); CREATININE FOR GFR 0.68 MG/DL (0.55-1.02); GLOMERULAR FILTRATION RATE > 60.0 (>60); GLUCOSE, FASTING 97 MG/DL (70-105); MAGNESIUM LEVEL 2.2 MG/DL (1.8-2.4); POTASSIUM SERUM 3.7 MEQ/L (3.5-5.1); SODIUM LEVEL 141 MEQ/L (136-145)
[2017-02-17 08:00] VITALS: BP 133/73
[2017-02-17] MEDS ORDERED: MAXA10TA15 PO (08:10)
--- NOTE | 2017-02-17 08:35 | DSES ---
DATE OF ADMISSION: 02/15/2017 DATE OF DISCHARGE: 02/17/2017 SPECIALISTS INVOLVED IN CARE: Dr. Llamas There were no complications of her stay. No procedures performed during her stay. DISCHARGE DIAGNOSES: 1. Complicated migraine. 2. Possible seizure. 3. Seasonal allergies. 4. History of cleft palate. 5. Presyncope. SUMMARY OF PRESENTATION: This is a 22-year-old who had presented to [facility] on 02/15/2017, for an outpatient EEG, suffered a syncopal event after having a series of similar events in the outpatient setting. She was taken to the emergency department for evaluation, was admitted to the hospitalist service for monitoring. Since being on a monitor and in hospital, complained of headache. Had no further events. She was seen in consultation by neurology. No findings of significance on MRI. No findings of significance on cardiac physical exam or telemetry. She has improved. has returned from training in [place]. She would like to go home today. This was discussed with the covering neurologist. Plan is for discharge with close to followup. On the day of discharge, temperature is 98.7, pulse 91, respiratory rate 18, blood pressure 113/70, 97% on room air. Awake, alert, pleasant, easily conversant, in fact happy. Mucous membranes are tacky. Neck supple. Breathing symmetrical, rested. IE ratio is 1:3. No wheezes, rales, or rhonchi. No accessory muscle use, speaking in complete sentences. Heart is a regular rate and rhythm. No significant arrhythmia on monitor. Abdomen soft, doughy, and nontender. No lower extremity edema. DISCHARGE INSTRUCTIONS: Include the followin. Followup with [facility] this week. 2. Followup with Dr. Llamas as per his instructions. Call his office tomorrow for followup. 3. Seizure precautions are described and written instructions given. 4. Diet as tolerated. 5. Continue Maxalt 10 mg by mouth twice daily as needed for migraine, #10. 6. Continue Fioricet as needed for migraine. 7. Certrizine 10 by mouth daily as needed. 8. Singulair by mouth daily as needed. 9. Call EEG office tomorrow for followup instructions at 8:30 a.m.
--- NOTE | 2017-02-18 05:14 | CR ---
DATE OF CONSULTATION: 02/16/2017 REFERRING PHYSICIAN: Dr. Phoenix Carver REASON FOR CONSULTATION: Passing out spells. HISTORY OF PRESENT ILLNESS: Yulia Duenas is a 22-year-old woman with history of migraine that started 4 years ago. She was seen by neurologist in [place]. She states that she has been able to control her migraines by increasing her fluid intake and cutting down soda. She was taking Maxalt as needed, which helped her migraines. She also used Fioricet as needed, which also helped. Her migraines range anywhere between 2 or 3 times per day up to 2 or 3 times a month. They last for 1 or 2 days. Headaches are occipital in location and sometimes all over her head, throbbing in character with intermittent nausea, lightheadedness, blurred vision, photophobia and phonophobia. She also complains of 8/10 neck and back pain for a couple of years. She denies any seizures. She states that she started passing out in January 2017. Her first episode was on 02/05/2017. She has passed out eight times since then. She loses consciousness for 1 minute without shaking, tongue biting or urinary incontinence. According to her [id number] who was present in the room that she just lays there still. They are aggravated by stress. There are different times of stresses going on in her life currently. DIAGNOSTIC STUDIES: Her MRI scan of brain was reportedly unremarkable, except artifact due to her braces. Her urine toxicology screen showed positive barbiturates likely due to her use of Fioricet. Her beta ACD was negative. Her CBC and metabolic profile were within normal limits. PAST MEDICAL HISTORY: Migraines. CURRENT MEDICATIONS: - Fioricet one tablet by mouth twice a day as needed She refused Depakote as she was worried that it may affect her fertility. ALLERGIES: None. SOCIAL HISTORY: She quit smoking a few years ago. She drinks alcohol socially. She denies illicit drugs. She does not have any children. She lives with her . FAMILY HISTORY: Brother and father have a history of migraines. PHYSICAL EXAMINATION: Blood pressure 117/68, respiratory 18, pulse 70, blood temperature 98.1. Heart: Regular rate and rhythm. Lungs: Clear to auscultation. Abdomen: Soft, nontender, nondistended. Neurological exam: Patient is awake, alert, oriented to place, person and time. Normal speech, comprehension and repetition. Extraocular muscles are intact. No facial weakness. Tongue and uvula are midline. 5/5 strength in all four extremities. Deep tendon flexes are 2+ throughout. Normal sensation. Gait is normal. There is no ataxia or dysmetria. REVIEW OF SYSTEMS: All systems were reviewed and found to be noncontributory, except as mentioned history present illness. ASSESSMENT: 1. Migraines, without aura, not intractable, without status migrainosus. 2. Chronic tension headaches, not intractable, 3. Syncopal episodes. 4. There is concern for seizures. PLAN: 1. EEG. 2. She declined trial of nortriptyline or Topamax. She declined Depakote as she is worried that it may affect her fertility. 3. Maxalt-ALL SOURCE INTELLIGENCE TECHNICIAN 10 mg by mouth twice a day as needed. 4. Follow up with us in 2 weeks after hospital discharge. PAUL
== END 2017-02-17 09:14 | disposition home or self-care (01) | DRG 103 ==
LOC: M ED 11:24 → M ED INP 13:02 → M PCU 16:10
PROVIDERS: ADMIT Internal Medicine; ATTEND Internal Medicine
DX: G43.109 Migraine with aura, not intractable, without status migrainosus (principal); R56.9 Unspecified convulsions; G44.209 Tension-type headache, unspecified, not intractable; J30.2 Other seasonal allergic rhinitis; Z87.730 Personal history of (corrected) cleft lip and palate; R55 Syncope and collapse; Z72.0 Tobacco use; Z83.3 Family history of diabetes mellitus; Z82.49 Family history of ischemic heart disease and other diseases of the circulatory system; Z81.8 Family history of other mental and behavioral disorders; Z79.899 Other long term (current) drug therapy

== ENCOUNTER → 2017-02-18 | Outpatient (CLI) | payer OTHER ==
[~2017-02-18] MED LIST changes: +BUTA-198 PO; -CETIRIZINE (ZyrTEC) 10 MG TAB PO PRN; -CETIRIZINE (ZyrTEC) 10 MG TAB PO SCH; +MAXA10TA15 PO; -MONTELUKAST 10 MG TAB PO PRN; -MONTELUKAST 10 MG TAB PO SCH
--- NOTE | 2017-02-19 06:29 | EEG ---
DATE OF PROCEDURE: 02/18/2017 REFERRING PHYSICIAN: Dr. Suzie Gilliam DIAGNOSIS: Syncope, rule out seizures. EEG NUMBER: [id number]. HISTORY: The patient is a 22-year-old woman with recent onset of syncopal episodes. She passed out multiple times. She is currently taking Maxalt, Fioricet, Singulair, etc. TECHNICAL DESCRIPTION: This digital EEG was recorded by 21 scalp, ear and two EKG electrodes and was reviewed in bipolar and referential montages following reformatting in 10-20 international electrode placement system. INTERPRETATION: The patient was noted to be in awake and drowsy states during this EEG. Resting awake background rhythm consisted of well-formed posterior dominant rhythm with anterior/posterior gradient comprising of 9 Hz alpha activity measuring 15-40 microvolts in amplitude, which was symmetric and reactive to eye opening. Anteriorly low voltage, mixed frequencies were noted. Attenuation of posterior dominant rhythm was seen during transition into drowsiness. Stage I and II sleep were reviewed and were symmetric bilaterally. Hyperventilation elicited mild theta slowing of background rhythm. Photic stimulation at 3-30 Hz elicited symmetric photic driving especially at mid frequencies. EKG revealed normal sinus rhythm. No focal, lateralizing or epileptiform abnormalities were seen. No clinical or electrographic seizures were recorded. CONCLUSION: This EEG in awake, drowsy states, stage I and II sleep is within normal limits.
== END ==
LOC: M SLEEP 02-15 08:39
PROVIDERS: ATTEND Family Medicine
DX: R55 Syncope and collapse (principal)

== ENCOUNTER 2017-05-30 12:53 | Emergency (ER) | payer OTHER ==
[~2017-05-30] VITALS: Ht 167.6 cm; Wt 61.1 kg
[2017-05-30] MEDS ORDERED: PRENTAB29 (13:03)
[2017-05-30 15:22] VITALS: BP 103/60
--- NOTE | 2017-05-30 15:38 | REP ---
OB ULTRASOUND: Real-time sonographic evaluation of the gravid uterus is performed utilizing transabdominal technique. There is a single living intrauterine gestation. Estimated gestational age is 16 weeks 2 days based on the LMP with EDC 11/12/2017. Today's measurements indicate appropriate growth. BPD 33 mm = 16 weeks 1 day, 46th percentile HC 124 mm = 16 weeks 2 days, 47th percentile AC 109 mm = 16 weeks 6 days, 63rd percentile Femur length 20 mm = 16 weeks 0 days, 41st percentile HC/AC ratio 1.13 within normal range. Estimated weight 155 grams, 48th percentile. Cervix closed and measures 3.5 cm in length. heart rate 150 beats per minute. Questionable tiny cystic area is seen in each choroid plexus. Posterior fossa, stomach, cord insertion, three vessel cord, kidneys, and bladder are visualized and are grossly unremarkable. position breech. The placenta is posterior with no evidence of abruption. Amniotic fluid appears within normal limits. Signed by Hussein Rae MD 05/30/2017 03:59 P
== END 2017-05-30 15:25 | disposition home or self-care (01) ==
LOC: M ED 12:53
DX: B34.9 Viral infection, unspecified (principal); R50.9 Fever, unspecified; F41.9 Anxiety disorder, unspecified; Z79.899 Other long term (current) drug therapy; Z3A.16 16 weeks gestation of pregnancy

== ENCOUNTER 2017-07-07 21:44 | Outpatient (CLI) | payer OTHER ==
[~2017-07-07] VITALS: Ht 167.6 cm; Wt 61.0 kg
[~2017-07-07 21:44] MED LIST changes: +PRENTAB29
[2017-07-07 22:01] VITALS: BP 117/63
== END 2017-07-07 22:40 | disposition home or self-care (01) ==
LOC: M LDO 21:44
PROVIDERS: ATTEND Student in an Organized Health Care Education/Training Program
DX: O26.892 Other specified pregnancy related conditions, second trimester (principal); N89.8 Other specified noninflammatory disorders of vagina; Z3A.21 21 weeks gestation of pregnancy; O62.0 Primary inadequate contractions

== ENCOUNTER 2017-08-19 11:36 | Outpatient (CLI) | payer OTHER ==
[~2017-08-19] VITALS: Ht 167.6 cm; Wt 66.9 kg
[2017-08-19 11:57] VITALS: BP 126/77
== END 2017-08-19 12:30 | disposition home or self-care (01) ==
LOC: M LDO 11:36
PROVIDERS: ATTEND Obstetrics & Gynecology
DX: O47.03 False labor before 37 completed weeks of gestation, third trimester (principal); Z3A.27 27 weeks gestation of pregnancy

== ENCOUNTER 2017-10-30 12:02 | Outpatient (CLI) | payer OTHER ==
[~2017-10-30] VITALS: Ht 167.6 cm; Wt 73.8 kg
[2017-10-30] MEDS ORDERED: ANTA500C PO (12:17)
[2017-10-30 12:20] VITALS: BP 135/86
== END 2017-10-30 13:17 | disposition home or self-care (01) ==
LOC: M LDO 12:02
PROVIDERS: ATTEND Student in an Organized Health Care Education/Training Program
DX: O26.893 Other specified pregnancy related conditions, third trimester (principal); Z3A.38 38 weeks gestation of pregnancy; N89.8 Other specified noninflammatory disorders of vagina; O99.353 Diseases of the nervous system complicating pregnancy, third trimester

== ENCOUNTER 2017-11-06 07:26 | Inpatient (IN) | payer OTHER ==
[2017-11-06] VITALS (8 sets, daily range): BP systolic 107–136; BP diastolic 53–90
[~2017-11-06] VITALS: Ht 167.6 cm; Wt 74.4 kg
[~2017-11-06 07:26] MED LIST changes: +ANTA500C PO
[2017-11-06] MEDS ORDERED: RANI15TA PO (07:40)
[2017-11-06] MEDS ORDERED: LR 1,000 ML IV SCH ×2 (08:01→10:30)
[2017-11-06] MEDS ORDERED: LACTATED RINGER'S 1000 ML IV STA (08:01)
[2017-11-06] MEDS ORDERED: METOCLOPRAMIDE INJ 10MG/2ML VIAL (J2765) IV PRN ×2 (08:08→10:15)
[2017-11-06] MEDS ORDERED: ONDANSETRON 4MG/2ML VIAL (J2405) IV PRN ×2 (08:08→10:30)
[2017-11-06] MEDS ORDERED: NALBUPHINE HCL 10 MG/ML AMP (J2300) IV PRN (08:08)
[2017-11-06] MEDS ORDERED: NALOXONE INJ 0.4 MG/1 ML VIAL (J2310) IV PRN ×2 (08:08)
[2017-11-06] MEDS ORDERED: TERBUTALINE SULFATE 1 MG/ML VIAL (J3105) As Ordered ONE (08:21)
--- NOTE | 2017-11-06 08:21 | HPEPDOC ---
Obstetrical History & Physical General Date of Admission Nov 06, 2017 at 07:58 History of Present Illness 22 y/o at 39+1 with reg ctx's since MN, signif pain. No LOF/VB. Incr in d /c noted. Pos FM, female. 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: No pertinent history Past Medical History Medical History seasonal allergies Surgical History: Other (wisdom teeth, ACL repair X2, rhinoplasty X2, speech surgery, pharyngeal flap, multiple cleft palate surgeries) Family History Significant Family History: Noncontributory Social History Social history denies Marital Status: Family situation: Spouse/partner home Psychosocial History: No pertinent psych hx * Smoker: non-smoker Alcohol: Denies Drugs: denies Abuse Violence Screening Have you been hit/kicked/slapp: No Have you been sexually assault: No Imunizations Tdap status: current Influenza Status: current Allergies Coded Allergies: No Known Drug Allergy (Verified Allergy, Unknown, 11/06/17) Medications Scheduled Ranitidine Hcl (Zantac) 150 Mg Tab, 1 TAB PO BID Scheduled PRN Calcium Carbonate (Antacid) 500 Mg Chw, 500 MG PO for HEARTBURN/INDIGESTION Miscellaneous Medications [] Physical Examination Physical Examination GENERAL: Alert and oriented times three. BREAST: . ABDOMEN: Gravid and non-tender to touch. FETUS: Is vertex (VTX) by sterile vaginal examination, 3/90/0 EXTREMITIES: No edema. Laboratory Data Urine Culture: Contaminated Pertinent Laboratoy Data Blood Type: A+ RBC Antibody Screen: Negative HIV: Negative Hepatitis B: Negative Hepatitis C: Unknown Rapid Plasma Reagin: Nonreactive Rubella: Immune Varicella: Nonreactive Chlamydia/Gonorrhea: Negative Group B Streptococcus: Negative Quad Screen Test: Declined Cystic Fibrosis: Negative Glucose Tolerance Test: 97 Anatomy Ultrasound Ultrasound Date: Jun 25, 2017 Placenta Location: Posterior Normal Anatomy: Yes Placenta Previa: No Assessment Variability: Moderate Accelerations: Present Decelerations: Variable (multiple, single prolonged decel when first monitored) Tocometer Frequency: regular Duration: greater than 60 seconds Strength: palpated as moderate Assessment/Plan Assessment 39+1 with reg ctx's. Periodic variables and a single prolonged decel. IU resusc measures being done and IV fluids immed ordered, bolus 1000. If cannot fix her NRFHT, will do a as is remote from delivery. Plan Admit and orient. Real Estate Clerk and consent. Diet: NPO Group B Streptococcus (GBS) neg Labs and intravenous (IV) per unit protocol. Counseled on Pitocin and induction of labor (IOL). Lactated Ringers (LR): Bolus 1000 mL, then at 125 mL/hr. C-S as appropriate. SESSIONS,MONIKA Kern MD Nov 06, 2017 08:21
[2017-11-06 08:22] LABS: MEAN CORPUSCULAR HEMOGLOBIN 27.2 pg (27.0-33.0); MEAN CORPUSCULAR HGB CONC 33.5 g/dl (32.0-36.5); MEAN CORPUSCULAR VOLUME 81.2 fl (80.0-96.0); PLATELET COUNT, AUTOMATED 221 10^3/uL (150-450); RED CELL DISTRIBUTION WIDTH 14.1 % (11.5-14.5); WHITE BLOOD COUNT 9.4 10^3/uL (4.0-10.0)
[2017-11-06] MEDS ORDERED: ceFAZolin 2 GM/D5W 50 ML IV BAG (J0690 PER 500MG) As Ordered ONE (08:23)
[2017-11-06] MEDS ORDERED: TERBUTALINE SULFATE 1 MG/ML VIAL (J3105) SC ONE (08:45)
[2017-11-06] MEDS ORDERED: BICITRA 30ML SOLN UDC PO ONE (08:45)
--- NOTE | 2017-11-06 08:54 | IPNPDOC ---
Text Note Date of Service The patient was seen on 11/06/17. NOTE Continues to have periodic variables and possible lates, mod michael persists. With 0.25 terbutaline SC overall tracing improved with less frequent variable decels but they persist. Due to remote from delivery, I rec . Pt agrees and informed consent obtained. Anesthesia team and OR team mobilizing. Sessions VS,Yessica, I+O VS, Yessica I+O Laboratory Tests 11/06/17 08:09 Red Blood Count 4.63, Mean Corpuscular Volume 81.2, Mean Corpuscular Hemoglobin 27.2, Mean Corpuscular Hemoglobin Concent 33.5, Red Cell Distribution Width 14.1 SESSIONS,MONIKA Kern MD Nov 06, 2017 08:54
[2017-11-06] MEDS: DOCUSATE SODIUM 100 MG CAP PO SCH ×2 (09:00→21:52)
[2017-11-06] MEDS ORDERED: PERCOCET 5MG/325MG TAB PO PRN ×3 (10:15→10:30)
[2017-11-06] MEDS ORDERED: RHOGAM 300 MCG (1500 IU) INJ (J2790) IM SCH (10:15)
[2017-11-06] MEDS ORDERED: MEASLES,MUMPS,RUBELLA VACCINE INJ (MMR-II) (90707) SC SCH (10:15)
[2017-11-06] MEDS ORDERED: fentaNYL 100 MCG/2 ML INJECTION (J3010) IV PRN (10:30)
[2017-11-06] MEDS ORDERED: diphenhydrAMINE INJ 50MG/ML VIAL (J1200) IV PRN (10:30)
[2017-11-06] MEDS: PRENATAL VITAMINS CHEWABLE TABLET PO SCH (13:17)
[2017-11-06] MEDS: LR 1,000 ML IV SCH ×2 (16:42→18:10)
[2017-11-06] MEDS: KETOROLAC 30 MG/ML VIAL (J1885) IV SCH ×2 (16:43→21:52)
[2017-11-07 02:03] VITALS: BP 103/54
[2017-11-07] MEDS: KETOROLAC 30 MG/ML VIAL (J1885) IV SCH (04:15)
[2017-11-07 05:33] VITALS: BP 102/56
[2017-11-07 06:58] LABS: MEAN CORPUSCULAR HEMOGLOBIN 27.3 pg (27.0-33.0); MEAN CORPUSCULAR HGB CONC 32.3 g/dl (32.0-36.5); MEAN CORPUSCULAR VOLUME 84.5 fl (80.0-96.0); PLATELET COUNT, AUTOMATED 173 10^3/uL (150-450); RED CELL DISTRIBUTION WIDTH 14.1 % (11.5-14.5); WHITE BLOOD COUNT 10.8 10^3/uL (4.0-10.0)
[2017-11-07] MEDS: LR 1,000 ML IV SCH ×3 (07:13→18:10)
--- NOTE | 2017-11-07 07:33 | IPNPDOC ---
Text Note Date of Service The patient was seen on 11/07/17. NOTE POD1 prog note s/p yest AM States feeling well, no complaints. No heavy VB. Bonding well and breast feeding well. Pain controlled. No LP/CP/SOB/N/V. VSSAF CTAB RRR Ut at U-2, firm Ext no CCE Inc CDI, bandage removed CBC apopropr this AM a/p: Doing well. routine postop care. Sessions Yessica MCCAIN, I+O Yessica WILSON I+O Laboratory Tests 11/06/17 08:09 Red Blood Count 4.63, Mean Corpuscular Volume 81.2, Mean Corpuscular Hemoglobin 27.2, Mean Corpuscular Hemoglobin Concent 33.5, Red Cell Distribution Width 14.1 11/07/17 06:46 Red Blood Count 3.88 L, Mean Corpuscular Volume 84.5, Mean Corpuscular Hemoglobin 27.3, Mean Corpuscular Hemoglobin Concent 32.3, Red Cell Distribution Width 14.1 Vital Signs Date Time Temp Pulse Resp B/P (MAP) Pulse Ox O2 Delivery O2 Flow Rate FiO2 11/07/17 05:33 97.6 81 18 102/56 (71) 11/07/17 02:03 98 Room Air I&O- Last 24 Hours up to 6 AM 11/07/17 06:00 Intake Total 3940 ml Output Total 2650 ml Balance 1290 ml MONIKA CARD MD Nov 07, 2017 07:33
[2017-11-07] MEDS: DOCUSATE SODIUM 100 MG CAP PO SCH ×2 (08:27→19:53)
[2017-11-07] MEDS: PRENATAL VITAMINS CHEWABLE TABLET PO SCH (08:27)
[2017-11-07] MEDS ORDERED: IBUPROFEN 800 MG TAB PO SCH (10:00)
[2017-11-07 11:01] VITALS: BP 107/58
[2017-11-07] MEDS: IBUPROFEN 800 MG TAB PO SCH ×2 (12:02→19:54)
[2017-11-07 14:31] VITALS: BP 99/55
[2017-11-07 14:40] VITALS: BP 105/60
[2017-11-07 18:04] VITALS: BP 111/57
[2017-11-08 06:00] VITALS: BP 115/62
[2017-11-08] MEDS: PRENATAL VITAMINS CHEWABLE TABLET PO SCH (09:38)
[2017-11-08] MEDS: DOCUSATE SODIUM 100 MG CAP PO SCH (09:38)
[2017-11-08] MEDS ORDERED: COLA100C5 PO (11:29)
[2017-11-08] MEDS ORDERED: IBUP-1114 PO (11:29)
[2017-11-08] MEDS ORDERED: OXYC1TAB23 PO ×2 (11:30→11:32)
--- NOTE | 2017-11-08 20:09 | RO ---
DATE OF PROCEDURE: 11/06/2017 PREPROCEDURE DIAGNOSIS: Nonreassuring heart tracing, remote from delivery. POSTPROCEDURE DIAGNOSIS: Nonreassuring heart tracing, remote from delivery. OPERATIVE PROCEDURE: Primary low transverse section. SURGEON: Hussein Wise MD INVENTORY AUDITOR: Dalton ponce. ANESTHESIA: Spinal ESTIMATED BLOOD LOSS: 400 mL DRAINS: 100 mL of clear urine in the Mercer catheter. FLUIDS REPLACED: 1600 mL of lactated ringers. PREOPERATIVE ANTIBIOTICS: Ancef 2 grams IV. SPECIMENS: None. FINDINGS: SGA female with a very thin cord and a tight nuchal times one with clear fluids. Apgars 8 and 8, weighing 2510 grams. INDICATION: The patient was admitted to labor and delivery after her triage evaluation showed a prolonged deceleration immediately after starting to monitor the baby. It lasted for approximately 3 to 4 minutes. There was moderate variability present. I continued to watch her, placed an IV quickly, got a fluid bolus into her and performed normal intrauterine resuscitative measures, however, the heart tracing did not improve. She had one further prolonged deceleration and periodic variable decelerations despite IV fluids and the resuscitation maneuvers. With her cervix being only 3 cm dilated, I recommended delivery as the was not likely to undergo safely the rigors of labor. DESCRIPTION OF PROCEDURE: The patient was taken to the operating room with an IV in place and placed in the dorsal supine position after a spinal anesthetic was performed. heart tones after the spinal were normal. She was catheterized and prepped in normal sterile fashion. After confirming the spinal was indeed adequate called the to the room and performed a Pfannenstiel skin incision down to the layer of the fascia which was snipped in the midline and extended bilaterally the extent of the skin incision. Akil clamps were placed on the fascial edges. These were tented up and the underling rectus muscles were dissected off sharply. I then the rectus muscles from the midline, identified the peritoneum, entered it bluntly with my digit. Did a quick exploration of the anterior peritoneal cavity which revealed no scar tissue. I then stretched this window to adequacy, to enable us to perform the delivery. Bladder blade was placed. Bladder flap was easily created and a low transverse uterine incision was performed down to the layer of the amnion. This was then breached with Allis clamps and clear fluid was noted. The obviously small was delivered through the incision without difficulty and in doing so we unwrapped a very tight nuchal cord. As stated in the findings, the cord was very thin. The infant was in good shape with a spontaneous cry and good tone, and after being shown to the parents, was taken to the warmer for resuscitation. The placenta was delivered with Pitocin running wide open and traction on the cord. The uterus was then delivered through the incision, wrapped in a warm sponge and the uterine cavity was cleared of all clots and debris with two dry sponges. A running suture of #0 Vicryl was then used to close the hysterotomy from left to right without difficulty in locked fashion. An #0-Monocryl was then used to imbricate this same incision. Hemostasis was noted from the incision. Irrigation was performed behind the uterus. The uterus was returned to the abdomen and the colic gutters were cleared bilaterally. One following inspection showed good uterine tone and hemostasis from the uterine incision. The peritoneum was closed from superior to inferior with the assistance of the three snaps and #2-0 Vicryl. Rectus bellies were noted to be hemostatic. Fascia was closed from left to right with running suture of #0 Vicryl, subcutaneous tissue was made to be hemostatic and copiously irrigated. It was closed with #3-0 Vicryl and closed the skin with a running subcuticular #4-0 Monocryl from left to right. Steri-Strips were placed over the incision as well as a pressure dressing. The patient's legs were frogged and with a bimanual exam, I cleared the vagina and cervix of all clots and debris. The uterus was noted to be firm and E-2. The patient was transferred to the PACU in stable condition. All counts were correct throughout the case times three including sponge, needle and instruments.
== END 2017-11-08 13:50 | disposition home or self-care (01) | DRG 766 ==
LOC: M LDO 07:26 → M LDI 07:58 → M OBS 12:10
PROVIDERS: ADMIT Obstetrics & Gynecology; ATTEND Obstetrics & Gynecology
PROC: 10D00Z1 Extraction of Products of Conception, Low, Open Approach (ICD-10-PCS; principal; 2017-11-06 09:13)
DX: O76 Abnormality in fetal heart rate and rhythm complicating labor and delivery (principal); Z3A.39 39 weeks gestation of pregnancy; O69.1XX0 Labor and delivery complicated by cord around neck, with compression, not applicable or unspecified; Z37.0 Single live birth

== ENCOUNTER 2018-01-18 02:04 | Inpatient (IN) | payer OTHER ==
[2018-01-18 04:14] LABS: HEMATOCRIT 41.7 % (36.0-47.0); HEMOGLOBIN 13.7 g/dl (12.0-16.0); MEAN CORPUSCULAR HEMOGLOBIN 26.4 pg (27.0-33.0); MEAN CORPUSCULAR HGB CONC 32.9 g/dl (32.0-36.5); MEAN CORPUSCULAR VOLUME 80.5 fl (80.0-96.0); PLATELET COUNT, AUTOMATED 261 10^3/uL (150-450); RED BLOOD COUNT 5.18 10^6/uL (4.00-5.40); RED CELL DISTRIBUTION WIDTH 13.9 % (11.5-14.5); WHITE BLOOD COUNT 7.7 10^3/uL (4.0-10.0)
[2018-01-18 04:32] LABS: AMPHETAMINES LEVEL URINE NEGATIVE (NEGATIVE); BARBITURATES URINE NEGATIVE (NEGATIVE); BENZODIAZEPINES URINE NEGATIVE (NEGATIVE); CANNABINOIDS URINE NEGATIVE (NEGATIVE); COCAINE METABOLITE URINE NEGATIVE (NEGATIVE); METHADONE URINE NEGATIVE (NEGATIVE); OPIATES URINE NEGATIVE (NEGATIVE); PHENCYCLIDINE URINE NEGATIVE (NEGATIVE)
[2018-01-18 04:42] LABS: ALBUMIN 4.4 GM/DL (3.2-5.2); ALBUMIN/GLOBULIN RATIO 1.38 (1.00-1.93); ALKALINE PHOSPHATASE 75 U/L (45-117); ALT/SGPT 56 U/L (12-78); ANION GAP 4 MEQ/L (8-16); AST/SGOT 28 U/L (7-37); BILIRUBIN,DIRECT < 0.1 MG/DL (0.0-0.2); BILIRUBIN,TOTAL 0.3 MG/DL (0.2-1.0); BLOOD UREA NITROGEN 12 MG/DL (7-18); CALCIUM LEVEL 8.6 MG/DL (8.5-10.1); CARBON DIOXIDE LEVEL 28 MEQ/L (21-32); CHLORIDE LEVEL 112 MEQ/L (98-107); CREATININE FOR GFR 0.65 MG/DL (0.55-1.30); GLOMERULAR FILTRATION RATE > 60.0 (>60); GLUCOSE, FASTING 96 MG/DL (70-100); POTASSIUM SERUM 4.1 MEQ/L (3.5-5.1); SALICYLATE LEVEL < 1.7 MG/DL (5.0-30.0); SODIUM LEVEL 144 MEQ/L (136-145); THYROID STIMULATING HORMONE 0.878 uIU/ML (0.358-3.740); TOTAL PROTEIN 7.6 GM/DL (6.4-8.2)
[2018-01-18 04:44] LABS: ACETAMINOPHEN LEVEL < 2.0 UG/ML (10.0-30.0); ETHYL ALCOHOL (ETHANOL) < 0.003 % (0.000-0.010)
[2018-01-18] MEDS ORDERED: MOM 30ML SUSPENSION UDC PO (12:15)
[2018-01-18] MEDS ORDERED: MAALOX 30 ML SUSP *UDC PO (12:15)
[2018-01-18] MEDS ORDERED: traZODone 50 MG TAB PO (12:15)
[2018-01-18] MEDS ORDERED: ACETAMINOPHEN TAB 650MG DOSE (2X325MG) PO (12:15)
== END 2018-01-21 10:30 | disposition home or self-care (01) | DRG 882 ==
LOC: M ED 02:04 → M ED INP 05:04 → M PSY 06:20
DX: F43.23 Adjustment disorder with mixed anxiety and depressed mood (principal); F32.9 Major depressive disorder, single episode, unspecified; Z86.14 Personal history of Methicillin resistant Staphylococcus aureus infection